=== PATIENT | female | born 1950 | race African-American/Black ===

== ENCOUNTER 2016-09-10 11:02 | Emergency (ER) | payer OTHER | END 2016-09-10 13:58 | disposition home or self-care (01) | DX: R04.2 Hemoptysis (principal); I10 Essential (primary) hypertension; K21.9 Gastro-esophageal reflux disease without esophagitis ==

== ENCOUNTER 2018-06-28 10:56 | Outpatient (CLI) | payer OTHER ==
[2018-06-28 14:23] LABS: BUN - BLOOD UREA NITROGEN 12 mg/dL (6-20); CALCIUM 9.3 mg/dL (8.5-10.3); CARBON DIOXIDE - CO2 29 mmol/L (21-32); CHLORIDE 100 mmol/L (101-111); CHOL/HDL RATIO 2.2 (<4.4); CHOLESTEROL 154 mg/dL; CREATININE 0.8 mg/dL (0.4-1.0); GFR - MDRD 87 (>89); GLUCOSE 98 mg/dL (70-100); HDL CHOLESTEROL 69 mg/dL; LDL CHOLESTEROL,CALCULATED 73 mg/dL; LDL/HDL RATIO 1.1 (<4.4); SODIUM 137 mmol/L (135-145); VLDL CHOLESTEROL 12 mg/dL
== END 2018-06-28 23:59 | disposition home or self-care (01) ==
LOC: LAB.N 10:56
PROVIDERS: ATTEND Internal Medicine Cardiovascular Disease
DX: I10 Essential (primary) hypertension (principal); E78.5 Hyperlipidemia, unspecified
CPT/HCPCS: 36415; 80048; 80053; 80061; 83721

== ENCOUNTER 2019-02-01 07:53 | Outpatient (CLI) | payer OTHER, MEDICARE ==
--- NOTE | 2019-02-01 11:08 | Mammography Report ---
Reason: [id number] Procedure Date: 02/01/2019 Accession Number: [id number] / [id number] Procedure: MGN - Screening Mammo Dig Bilat CPT Code: FULL RESULT: EXAM: Screening Mammo Dig Bilat DATE: 02/01/2019 8:37 AM CLINICAL HISTORY: Routine screening. No reported personal history of breast cancer. Benign excisional biopsy left breast in 1992. No reported family history of breast cancer. TECHNIQUE: (B) - Bilateral CC and MLO views were obtained. COMPARISON: 04/04/2012, 07/16/2010. PARENCHYMAL PATTERN: (A) - The breasts demonstrate scattered fibroglandular densities bilaterally. FINDINGS: Right breast: There is no 11 mm sharply circumscribed oval mass in the 6:00 subareolar right breast adjacent to the skin surface. No suspicious calcifications or areas of distortion. Left breast: There are no suspicious masses, calcifications, or areas of distortion. IMPRESSION: Right breast: 11 mm sharply circumscribed oval mass possibly cyst or focal duct dilatation 6:00 subareolar breast. Incomplete examination. BI-RADS category 0. Targeted ultrasound recommended. Left breast: Negative. BI-RADS Category 1. Recommend annual screening mammography. RECOMMENDATION: (ADDUS) - Targeted ultrasound recommended. BI-RADS CATEGORY: (0) - Incomplete Examination - need additional evaluation. STANDARD QUALIFYING STATEMENTS: 1. This examination was not reviewed with the aid of Computer-Aided Detection (CAD). 2. A negative or benign imaging report should not preclude biopsy if clinically suspicious findings are present. 3. Dense breasts may obscure an underlying neoplasm. 4. This examination was reviewed with the aid of 3D breast imaging (tomosynthesis).
== END 2019-02-01 07:54 | disposition home or self-care (01) ==
LOC: DI.N 07:53
PROVIDERS: ATTEND Nurse Practitioner Acute Care
DX: Z12.31 Encounter for screening mammogram for malignant neoplasm of breast (principal); R92.8 Other abnormal and inconclusive findings on diagnostic imaging of breast
CPT/HCPCS: 77067

== ENCOUNTER 2019-02-16 11:27 | Outpatient (CLI) | payer OTHER, MEDICARE ==
--- NOTE | 2019-02-16 13:39 | Ultrasound Report ---
Reason: ABNORMAL MAMMOGRAM Procedure Date: 02/16/2019 Accession Number: [id number] / [id number] Procedure: US - Breast Unilateral Limited CPT Code: FULL RESULT: EXAM: Breast Unilateral Limited DATE: 02/16/2019 12:04 PM CLINICAL HISTORY: ABNORMAL MAMMOGRAM COMPARISON: 02/01/2019 mammogram TECHNIQUE: Real-time scanning by the copy messenger with saved static images reviewed. FINDINGS: Corresponding to the mammographic abnormality in the 6:00 position right breast 1 cm from the nipple is an ovoid anechoic well-circumscribed avascular nodule measuring 8 x 6 x 8 mm with posterior acoustic enhancement and increased through transmission. The findings are consistent with a simple cyst. IMPRESSION: Benign findings right breast BI-RADS 2 RECOMMENDATION: Clinical follow-up of the palpable lump. If the lump enlarges return for repeat ultrasound. Otherwise follow-up bilateral mammography in 12 months. BI-RADS 2: Benign
== END 2019-02-16 11:28 | disposition home or self-care (01) ==
LOC: DI 11:27
PROVIDERS: ATTEND Nurse Practitioner Acute Care
DX: R92.8 Other abnormal and inconclusive findings on diagnostic imaging of breast (principal)
CPT/HCPCS: 76642

== ENCOUNTER 2019-11-06 15:48 | Emergency (ER) | payer MEDICARE, OTHER ==
--- NOTE | 2019-11-06 16:28 | ED Physician Documentation ---
History of Present Illness - Stated complaint Stated Complaint: groin leg px - Chief complaint Chief Complaint: Ext Problem - History obtained from History obtained from: Patient - History of Present Illness Timing: How many weeks ago (1) Pain level max: 6 Pain level now: 4 - Additonal information Additional information: 69-year-old female presents to the emergency department with right medial thigh pain. This been ongoing for the past week. Does not recall any injury. Worse with walking and better with rest. Has not taken any medication for this. Has had problems with this hip in the past and arthritis. No recent travel. No skin changes. No fever. Review of Systems Constitutional: denies: Fever, Chills GI: denies: Nausea, Vomiting, Diarrhea Skin: denies: Rash PD PAST MEDICAL HISTORY - Past Medical History Past Medical History: Yes Cardiovascular: Hypertension GI: GERD Psych: Depression - Past Surgical History Past Surgical History: Yes Ortho: Knee replacement /[employer]ER: Hysterectomy - Present Medications Home Medications: Ambulatory Orders Medication Instructions Recorded Confirmed Imipramine HCl 20 mg BID 11/04/15 09/10/16 Omeprazole 20 mg DAILY 11/04/15 09/10/16 Atorvastatin [Lipitor] 10 mg DAILY 09/10/16 09/10/16 Flecainide [Tambocar] 50 mg DAILY 09/10/16 09/10/16 Losartan [Cozaar] 50 mg PO DAILY 09/10/16 09/10/16 - Allergies Allergies/Adverse Reactions: Allergies Allergy/AdvReac Type Severity Reaction Status Date / Time No Known Drug Allergies Allergy Verified 11/06/19 15:52 - Social History Does the pt smoke?: No Smoking Status: Never smoker Does the pt drink ETOH?: No Does the pt have substance abuse?: No - POLST Patient has POLST: No PD ED PE NORMAL - Vitals Vital signs reviewed: Yes - General General: Alert and oriented X 3, No acute distress - Derm Derm: Warm and dry - Extremities Extremities: Other (Pain with active abduction of the right lower extremity. Mainly along the medial aspect of the thigh. Mild pain with isolated flexion and extension. There is no pain with passive range of motion. No skin changes. No crepitus. No ecchymosis. No palpable cords. No swelling. Neurovascular intact. No bony tenderness.) - Neuro Neuro: Alert and oriented X 3 Results - Vitals Vitals: Vital Signs - 24 hr 11/06/19 11/06/19 15:52 17:50 Temperature 36.5 C Heart Rate 56 L 60 Respiratory 16 16 Rate Blood Pressure 142/78 H 143/87 H O2 Saturation 97 Oxygen O2 Source Room air - Rads (name of study) Right lower extremity duplex ultrasound Radiology: Prelim report reviewed, EMP read contemporaneously, See rad report (No DVT) PD MEDICAL DECISION MAKING - ED course Complexity details: reviewed results, re-evaluated patient, considered differential, d/w patient ED course: Patient with right medial thigh pain. Appears to be muscular. Likely strain. No evidence of infection. No evidence of DVT. Winston bandage applied. She has meloxicam for home. Neurovascularly intact. Patient counseled regarding signs and symptoms for which I believe and urgent re-evaluation would be necessary. Patient with good understanding of and agreement to plan and is comfortable going home at this time This document was made in part using voice recognition software. While efforts are made to proofread this document, sound alike and grammatical errors may occur. Departure - Departure Disposition: 01 Home, Self Care Clinical Impression: Strain of right groin Condition: Good Instructions: ED Strain Groin Follow-Up: your,doctor in 1 week [Other] Comments: Continue your medications at home. Return if you worsen. Follow-up with your doctor for further care. Your ultrasound does not show any evidence of blood clot in your leg tonight. Gentle stretching may help as well. Discharge Date/Time: 11/06/19 17:58
--- NOTE | 2019-11-06 17:13 | Ultrasound Report ---
Reason: RLE pain, swelling Procedure Date: 11/06/2019 Accession Number: [id number] / [id number] Procedure: US - Duplex Ext Veins Right CPT Code: Final Report FULL RESULT: EXAM: RIGHT LOWER EXTREMITY VENOUS ULTRASOUND EXAM DATE: 11/06/2019 05:05 PM. CLINICAL HISTORY: RLE pain, swelling. COMPARISON: None. TECHNIQUE: Real-time sonographic vascular imaging was performed by the linemarker through the lower extremity utilizing both color-flow and Doppler spectral analysis. Multiple vaccine customer representative static images were saved for review. FINDINGS: Common Femoral Vein (CFV): Normal. CFV-GSV Junction: Normal. Profunda Femoral Vein (PFV): Normal. Femoral Vein (FV) Prox: Normal. Femoral Vein (FV) Mid: Normal. Femoral Vein (FV) Dist: Normal. Popliteal Vein: Normal. Posterior Tibial Veins: Normal. Peroneal Veins: Normal. Contralateral Side CFV: Normal. Other: None. IMPRESSION: No evidence for deep venous thrombosis. RADIA
[2019-11-06 17:58] VITALS: BP 143/87
== END 2019-11-06 17:58 | disposition home or self-care (01) ==
LOC: ED 15:48
DX: S39.011A Strain of muscle, fascia and tendon of abdomen, initial encounter (principal); X58.XXXA Exposure to other specified factors, initial encounter; M79.651 Pain in right thigh; I10 Essential (primary) hypertension
CPT/HCPCS: 99283; 99284

== ENCOUNTER 2020-01-23 04:29 | Outpatient (CLI) | payer MEDICARE, OTHER | END 2020-01-23 04:30 | disposition critical access hospital (66) | LOC: EMS 04:29 | PROVIDERS: ATTEND Surgery | DX: R07.9 Chest pain, unspecified (principal) | CPT/HCPCS: A0425; A0427 ==

== ENCOUNTER 2020-06-25 08:17 | Outpatient (CLI) | payer OTHER, MEDICARE ==
--- NOTE | 2020-06-26 13:00 | Mammography Report ---
BILATERAL DIGITAL SCREENING MAMMOGRAM 3D/2D: 06/25/2020 CLINICAL: Routine screening. Comparison is made to exams dated: 02/16/2019 ultrasound, 02/01/2019 mammogram, and 04/04/2012 mammogra m - [facility]. There are scattered fibroglandular elements in both breasts. No significant masses, calcifications, or other findings are seen in either breast. There has been no significant interval change. IMPRESSION: NEGATIVE There is no mammographic evidence of malignancy. A 1 year screening mammogram is recommended. This exam was interpreted at Station ID: [id number]. NOTE: For mammograms, a report in lay terms will be sent to the patient. Approximately 15% of breast malignancies will not be visualized mammographically. In the management of a palpable breast mass, a negative mammogram must not discourage biopsy of a clinically suspicious lesion. Electronically Signed By: Antonio Hart M.D. [email or web address]:06/25/2020 09:57:01 ACR BI-RADS Category 1: Negative 3341F PARENCHYMAL PATTERN: (A) - The breast(s) demonstrate(s) scattered fibroglandular densities. BI-RADS CATEGORY: (1) - 1 RECOMMENDATION: (ANNUAL) - Recommend routine annual screening mammography. [id number] 1 year screening LATERALITY: (B)
== END 2020-06-25 08:18 | disposition home or self-care (01) ==
LOC: DI.N 08:17
DX: Z12.31 Encounter for screening mammogram for malignant neoplasm of breast (principal)
CPT/HCPCS: 77067

== ENCOUNTER 2020-08-19 11:24 | Outpatient (CLI) | payer OTHER, MEDICARE ==
[2020-08-19 18:42] LABS: BUN - BLOOD UREA NITROGEN 13 mg/dL (6-20); CALCIUM 9.9 mg/dL (8.5-10.3); CARBON DIOXIDE - CO2 28 mmol/L (21-32); CHLORIDE 103 mmol/L (101-111); CHOL/HDL RATIO 3.3 (<4.4); CHOLESTEROL 237 mg/dL; CREATININE 0.8 mg/dL (0.4-1.0); GFR - MDRD 86 (>89); GLUCOSE 99 mg/dL (70-100); HDL CHOLESTEROL 72 mg/dL; LDL CHOLESTEROL,CALCULATED 147 mg/dL; POTASSIUM 4.7 mmol/L (3.5-5.0); SODIUM 144 mmol/L (135-145); TRIGLYCERIDES 89 mg/dL; VLDL CHOLESTEROL 18 mg/dL
== END 2020-08-19 11:25 | disposition home or self-care (01) ==
LOC: LAB.N 11:24
PROVIDERS: ATTEND Internal Medicine Cardiovascular Disease
DX: E78.5 Hyperlipidemia, unspecified (principal); I10 Essential (primary) hypertension
CPT/HCPCS: 36415; 80048; 80061; 83721

== ENCOUNTER 2021-07-02 15:09 | Outpatient (CLI) | payer MEDICARE, OTHER ==
--- NOTE | 2021-07-03 13:45 | Mammography Report ---
BILATERAL DIGITAL SCREENING MAMMOGRAM 3D/2D: 07/02/2021 CLINICAL: Routine screening. Comparison is made to exams dated: 06/25/2020 mammogram, 02/16/2019 ultrasound, 02/01/2019 mammogram, mammogram - [facility], 07/16/2010 mammogram, and 07/16/2009 mammogram - [facility]. There are scattered fibroglandular elements in both breasts. No significant masses, calcifications, or other findings are seen in either breast. There has been no significant interval change. IMPRESSION: NEGATIVE There is no mammographic evidence of malignancy. A 1 year screening mammogram is recommended. This exam was interpreted at Station ID: [id number]. NOTE: For mammograms, a report in lay terms will be sent to the patient. Approximately 15% of breast malignancies will not be visualized mammographically. In the management of a palpable breast mass, a negative mammogram must not discourage biopsy of a clinically suspicious lesion. Electronically Signed By: Fritz Mitchell [email or web address]/[email or web address]:07/02/2021 15:53:08 ACR BI-RADS Category 1: Negative 3341F PARENCHYMAL PATTERN: (A) - The breast(s) demonstrate(s) scattered fibroglandular densities. BI-RADS CATEGORY: (1) - 1 RECOMMENDATION: (ANNUAL) - Recommend routine annual screening mammography. [id number] 1 year screening LATERALITY: (B)
== END 2021-07-02 15:10 | disposition home or self-care (01) ==
LOC: DI.N 15:09
DX: Z12.31 Encounter for screening mammogram for malignant neoplasm of breast (principal)

== ENCOUNTER 2021-08-07 07:29 | Day surgery (SDC) | payer OTHER ==
[~2021-08-07 07:29] MED LIST: CYCLOPENTOLATE 1% OPHTH DROPS 2 ML ONE; KETOROLAC 0.45% OPHTH DROPS ONE; PHENYLEPHRINE 2.5% OPHTH 2 ML DROPS ONE; PROPARACAINE 0.5% OPHTH DROPS 15 ML ONE
[2021-08-07] MEDS ORDERED: LACTATED RINGERS 1,000 ML IV ONE (07:55)
--- NOTE | 2021-08-07 09:01 | ANESTHESIA ---
Pre-Anesthesia VS, & Labs - Diagnosis L senile combined cataract - Procedure L extraction cataract w/IOL Vital Signs: Temp Pulse Resp BP Pulse Ox 36.5 C 87 14 131/63 H 98 08/07/21 07:33 08/07/21 07:33 08/07/21 07:33 08/07/21 07:33 08/07/21 07:33 Height: 5 ft 9 in Weight (kg): 94.8 kg Body Mass Index: 30.8 BMI Classification: Obese - NPO >8 hours - Is Patient ?: No - Lab Results Lab results reviewed: Yes Home Medications and Allergies Home Medications: Ambulatory Orders DULoxetine [Cymbalta] 30 mg PO DAILY 08/06/21 Oxybutynin [Ditropan] 5 mg PO BID 08/06/21 amLODIPine [Norvasc] 5 mg PO DAILY 08/06/21 Omeprazole 20 mg PO DAILY 11/04/15 Atorvastatin [Lipitor] 10 mg PO DAILY 09/10/16 Losartan [Cozaar] 50 mg PO DAILY 09/10/16 DULoxetine [Cymbalta] 30 mg PO DAILY 08/06/21 Oxybutynin [Ditropan] 5 mg PO BID 08/06/21 amLODIPine [Norvasc] 5 mg PO DAILY 08/06/21 Allergies/Adverse Reactions: Allergies Allergy/AdvReac Type Severity Reaction Status Date / Time No Known Drug Allergies Allergy Verified 01/23/20 04:54 Anes History & Medical History - Anesthetic History Anesthesia Complications: reports: No previous complications Family history of Anesthesia Complications: Denies Family history of Malignant Hyperthermia: Denies - Medical History Cardiovascular: reports: Hypertension, Arrhythmia (SR w PACs, currently wearing 1 week Holter monitor) Pulmonary: reports: None Gastrointestinal: reports: GERD Smoking Status: Never smoker - Surgical History Gynecologic: reports: Hysterectomy Orthopedic: reports: Knee replacement Exam General: Alert, Oriented x3, Cooperative Dental: WNL Mouth Opening: Greater than 4 Fingerbreadths Neck Mobility: Normal Mallampati classification: II Thyromental Distance: 4-6 cm Respiratory: Lungs clear, Normal breath sounds, No respiratory distress Cardiovascular: Regular rate (SR w PACs per tele and palpation) Neurological: Normal speech Mental/Cognitive Status: Alert/Oriented X3, Normal for patient Cognitive Status: Within normal limits Plan Anesthesia Type: MAC Consent for Procedure(s) Verified and Reviewed: Yes Code Status: Attempt Resuscitation ASA classification: 2-Mild systemic disease Is this case an emergency?: No
[2021-08-07] MEDS ORDERED: MIDAZOLAM 2 MG/2 ML VIAL ONE (09:06)
[2021-08-07] MEDS ORDERED: BSS/LIDOCAINE/EPINEPHRINE 1 ML SYRINGE IO ONE (09:27)
[2021-08-07] MEDS ORDERED: TRIAMCIN/MOXIFLOX OPHTHALMIC 0.6 ML VIAL IO ONE ×2 (09:27→13:39)
[2021-08-07] MEDS ORDERED: BRIMONIDINE 0.2% OPHTH DROPS 5 ML OPTH ONE (09:27)
[2021-08-07] MEDS ORDERED: PROPARACAINE 0.5% OPHTH DROPS 15 ML EACHEYE ONE (09:27)
[2021-08-07] MEDS ORDERED: TIMOLOL 0.5% OPHTH DROPS OPTH ONE (09:27)
[2021-08-07] MEDS ORDERED: EPINEPHrine 1 MG/ML AMP IR ONE (09:27)
[2021-08-07] MEDS ORDERED: VANCOMYCIN OPHTHALMI 8MG/0.8ML 8 MG/0.8 ML SYRINGE IO ONE (09:28)
[2021-08-07] MEDS ORDERED: LACTATED RINGERS 700 ML IV ONE (09:41)
[2021-08-07 09:55] VITALS: BP 144/70
--- NOTE | 2021-08-07 11:19 | OPERATIVE REPORT ---
Operative Report - Other Other Information/Narrative: Date of Surgery: 08/07/21 Preop Dx: Visually significant cataract left eye. This was the first cataract surgery. Postop Dx: Same Procedure: Phacoemulsification with posterior chamber intraocular lens implant left eye Surgeon: Dr. Deandre Yuen Anesthesia: Monitored anesthesia care Complications: None Operative Indications: This is a 71-year-old F with progressive vision loss in the left eye due to 2+ nuclear sclerotic, 3+ cortical, and 2+ posterior subcapsular cataract. Best corrected visual acuity was 20/30 with glare to 20/60 vision in the left eye. Indications for surgery were: - Overall decrease in vision - Difficulty seeing words on a computer screen - Difficulty reading - Difficulty seeing words, closed captions, or game scores on TV - Difficulty seeing street signs - Difficulty driving in low light or at night - Difficulty driving at night because of headlights from other vehicles - Difficulty with glare or bright lights in any situation - Difficulty tracking a golf ball - Decreased acuity with firearms The patient was consented at length concerning the risks and benefits of cataract surgery after which the patient expressed a desire to proceed with surgery. Operative Procedure: The patient was taken into OR#3 and placed under monitored anesthesia care. A surgical time-out was conducted confirming correct patient, correct procedure, and correct surgical site. The patient was given topical anesthesia and then prepped and draped in the usual sterile fashion. The eye was entered at the 6 and 3 oclock positions. Intracameral Shugarcaine was injected into the anterior chamber followed by a dispersive viscoelastic. A continuous-tear curvilinear capsulorhexis was performed. The nucleus was hydrodissected and phacoemulsified. The cortex was evacuated using automated infusion and aspiration. A cohesive viscoelastic was injected into the capsular bag and a 19.5 diopter intraocular lens was inserted into the bag. Infusion and aspiration were used to evacuate the viscoelastic materials from the eye. The wounds were hydrated and the eye inflated to physiologic pressure using balanced salt solution. Approximately 0.25ml of a mixture of triamcinolone and moxifloxacin was injected trans-sclerally into the vitreous in the inferotemporal quadrant using a 30 gauge cannula. An additional 0.55ml of a mixture of triamcinolone, moxifloxacin, and vancomycin was injected subconjunct ivally in the superior quadrant for infection and inflammation prophylaxis. Wound integrity was checked with Weck-Tesha sponges. The patient was taken from the operating room in good condition and given post-op instructions.
--- NOTE | 2021-08-07 11:39 | ANESTHESIA POST OP EVALUATION ---
Anesthesia Post Eval - Post Anesthesia Eval Vitals: Last Vital Signs Temp 36.4 C L 08/07/21 09:41 Pulse 87 08/07/21 09:50 Resp 16 08/07/21 09:50 BP 144/70 H 08/07/21 09:50 Pulse Ox 100 08/07/21 09:50 CV Function Including HR & BP: Stable Pain Control: Satisfactory Nausea & Vomiting: Negative Mental Status: Baseline Respiratory Status: Airway Patent Hydration Status: Satisfactory Anesthesia Complications: None
[2021-08-07] MEDS ORDERED: BSS/LIDOCAINE/EPINEPHRINE 1 ML VIAL ONE (13:40)
[2021-08-07] MEDS ORDERED: BRIMONIDINE 0.2% OPHTH DROPS 5 ML ONE (13:40)
[2021-08-07] MEDS ORDERED: TIMOLOL 0.5% OPHTH DROPS ONE (13:40)
== END 2021-08-07 07:30 | disposition home or self-care (01) ==
LOC: SDS 07:29
PROVIDERS: ATTEND Ophthalmology
DX: H25.812 Combined forms of age-related cataract, left eye (principal); E66.9 Obesity, unspecified; Z68.30 Body mass index [BMI] 30.0-30.9, adult; I49.9 Cardiac arrhythmia, unspecified
CPT/HCPCS: 66984; A9270; J3490; J7120

== ENCOUNTER 2021-11-27 23:08 | Emergency (ER) | payer OTHER ==
--- NOTE | 2021-11-27 23:34 | ED Physician Documentation ---
PD HPI CHEST PAIN - Stated complaint Stated Complaint: CP,BURPING - Chief complaint Chief Complaint: Cardiac - History obtained from History obtained from: Patient - History of Present Illness Timing - onset: How many days ago (few) Timing - onset during: Rest, Light activity. No: Exertion Timing - duration: Days (few) Timing - details: Still present, Intermittant Quality: Aching Location: Left chest Radiation: Back (left scapular) Improved by: No: Rest, Antacids Worsened by: No: Exertion, Inspiration, Eating Associated symptoms: Nausea, Other (frequent burping). No: Shortness of air, Diaphoresis Similar symptoms before: Has not had sx before Recently seen: Not recently seen Review of Systems Constitutional: denies: Fever, Chills Nose: denies: Rhinorrhea / runny nose, Congestion Throat: denies: Sore throat Cardiac: denies: Pedal edema, Calf pain Respiratory: denies: Dyspnea, Cough, Wheezing GI: denies: Abdominal Pain, Nausea, Vomiting, Diarrhea Skin: denies: Rash, Lesions Musculoskeletal: denies: Neck pain, Back pain Neurologic: denies: Generalized weakness, Near syncope, Altered mental status, Headache Immunocompromised: denies: Immunocompromised PD PAST MEDICAL HISTORY - Past Medical History Cardiovascular: Hypertension, Arrhythmia Respiratory: None Endocrine/Autoimmune: None GI: GERD : None HEENT: None Psych: Depression Musculoskeletal: None Derm: None - Past Surgical History Past Surgical History: Yes 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 HEENT: Cataracts - Present Medications Home Medications: Ambulatory Orders Medication Instructions Recorded Confirmed Omeprazole 20 mg PO DAILY 11/04/15 09/17/21 Atorvastatin [Lipitor] 10 mg PO DAILY 09/10/16 09/17/21 Losartan [Cozaar] 50 mg PO DAILY 09/10/16 09/17/21 DULoxetine [Cymbalta] 30 mg PO DAILY 08/06/21 09/17/21 Oxybutynin [Ditropan] 5 mg PO BID 08/06/21 09/17/21 amLODIPine [Norvasc] 5 mg PO DAILY 08/06/21 09/17/21 Metoprolol Tartrate [Lopressor] 25 mg PO BID 09/18/21 09/18/21 Lidocaine Viscous 2% [Xylocaine 5 ml PO Q4H PRN #100 ml 06/17/22 Viscous 2%] Ondansetron Odt [Zofran] 4 mg TL Q6H PRN #10 tablet 11/28/21 - Allergies Allergies/Adverse Reactions: Allergies Allergy/AdvReac Type Severity Reaction Status Date / Time No Known Drug Allergies Allergy Verified 11/27/21 23:15 - Living Situation Living Situation: reports: With spouse/s.o. Living Arrangement: reports: At home - Social History Does the pt smoke?: No Smoking Status: Never smoker Does the pt drink ETOH?: No Does the pt have substance abuse?: No - Immunizations Immunizations are current?: No - POLST Patient has POLST: No PD ED PE NORMAL - Vitals Vital signs reviewed: Yes - General General: Alert and oriented X 3, No acute distress, Well developed/nourished - HEENT HEENT: Pharynx benign - Neck Neck: Supple, no meningeal sign, No adenopathy - Cardiac Cardiac: RRR, No murmur - Respiratory Respiratory: No respiratory distress, Clear bilaterally, Other (no chestwall tenderness) - Abdomen Abdomen: Normal bowel sounds, Soft, Non tender - Derm Derm: Normal color, Warm and dry - Extremities Extremities: Normal ROM s pain, No edema, No calf tenderness / cord, Other (left heel with tenderness. She says chronic ulcer there. Left sock on at patient request.) - Neuro Neuro: Alert and oriented X 3, No motor deficit, Normal speech Results - Vitals Vitals: Vital Signs - 24 hr 11/27/21 11/27/21 11/27/21 23:10 23:24 23:56 Temperature 36.1 C L Heart Rate 97 98 85 Respiratory 18 18 15 Rate Blood Pressure 133/115 H 131/82 H 131/82 H O2 Saturation 94 98 98 11/28/21 11/28/21 11/28/21 00:29 00:32 01:08 Temperature Heart Rate 76 80 76 Respiratory 20 14 22 Rate Blood Pressure 131/82 H 131/82 H 91/65 O2 Saturation 97 98 97 11/28/21 11/28/21 01:43 02:01 Temperature Heart Rate 85 74 Respiratory 22 20 Rate Blood Pressure 117/77 132/64 H O2 Saturation 98 98 Oxygen O2 Source Room air - EKG (time done) 23:16 Rate: Rate (enter#) (93) Rhythm: NSR [place]: Normal Intervals: Normal [place] QRS: Normal Ischemia: Normal ST segments. No: ST elevation c/w ischemia, ST depression Compare to prior EKG: Old EKG unavailable - Labs Labs: Laboratory Tests 11/27/21 11/27/21 11/27/21 23:34 23:34 23:34 WBC 6.4 RBC 4.80 Hgb 13.6 Hct 41.5 MCV 86.5 MCH 28.3 MCHC 32.8 RDW 15.5 H Plt Count 294 MPV 10.4 Neut # (Auto) 2.9 Lymph # (Auto) 2.9 [place] # (Auto) 0.4 Eos # (Auto) 0.2 Baso # (Auto) 0.0 Absolute Nucleated RBC 0.00 Nucleated RBC % 0.0 Sodium 139 Potassium 3.7 Chloride 104 Carbon Dioxide 26 Anion Gap 9.0 BUN 23 H Creatinine 0.7 Estimated GFR (MDRD) 100 Glucose 110 H Calcium 9.4 Total Bilirubin 0.5 AST 26 ALT 27 Alkaline Phosphatase 91 Troponin I High Sens 3.5 B-Natriuretic Peptide Total Protein 7.7 Albumin 3.8 Globulin 3.9 Albumin/Globulin Ratio 1.0 Lipase 25 11/27/21 23:34 WBC RBC Hgb Hct MCV MCH MCHC RDW Plt Count MPV Neut # (Auto) Lymph # (Auto) [place] # (Auto) Eos # (Auto) Baso # (Auto) Absolute Nucleated RBC Nucleated RBC % Sodium Potassium Chloride Carbon Dioxide Anion Gap BUN Creatinine Estimated GFR (MDRD) Glucose Calcium Total Bilirubin AST ALT Alkaline Phosphatase Troponin I High Sens B-Natriuretic Peptide 10 Total Protein Albumin Globulin Albumin/Globulin Ratio Lipase - Rads (name of study) chest xray Radiology: Prelim report reviewed (normal), See rad report PD MEDICAL DECISION MAKING - ED course Complexity details: re-evaluated patient (she states good improvement with GI cocktail. This, along with normal other tests, suggests esophagitis/gastritis. ), considered differential (can assess for CO/lung process. Not exertional and does not sound like classic angina. Can chest labs too. ) Departure - Departure Disposition: 01 Home, Self Care Clinical Impression: Esophagitis Chest pain Qualifiers: Chest pain type: precordial pain Qualified Code(s): R07.2 - Precordial pain Condition: Stable Record reviewed to determine appropriate education?: Yes Instructions: ED GERD, ED Gastritis Follow-Up: Laurence Goldberg MD [Primary Care Provider] - Prescriptions: Lidocaine Viscous 2% [Xylocaine Viscous 2%] 5 ml PO Q4H PRN #100 ml PRN Reason: Pain Ondansetron Odt [Zofran] 4 mg TL Q6H PRN #10 tablet PRN Reason: Nausea / Vomiting Comments: Your EKG, chest x-ray, blood tests are normal. No signs of heart attack, heart failure, lung process, pancreatitis or gallbladder or liver problems. I presume you are having some irritation of the stomach and esophagus. I would have you increase your omeprazole 20 mg from once daily to twice daily for the next couple of weeks. To that add some antacids such as Maalox or Mylanta 3-4 times daily. You can combine it with the lidocaine 5mL per dose to help with the discomfort. This is what we gave you here to help with the symptoms. To that add Tylenol every 4-6 hours if needed for pains. Ondansetron every 4-6 hours if needed for nausea. Continue your other usual medicines. No aspirin or ibuprofen. Follow-up with your primary care if not improving well over the next several days to week. If you have persistent symptoms that are hard to fully clear, your primary care may consider doing a stool test to look for an infection called H. pylori and/or other testing. I sent your prescription to [facility] in [place]. Discharge Date/Time: 11/28/21 02:23
[2021-11-27 23:54] LABS: ALBUMIN 3.8 g/dL (3.2-5.5); BILIRUBIN,TOTAL 0.5 mg/dL (0.2-1.0); CALCIUM 9.4 mg/dL (8.5-10.3); CREATININE 0.7 mg/dL (0.4-1.0); POTASSIUM 3.7 mmol/L (3.5-5.0); TOTAL PROTEIN 7.7 g/dL (6.7-8.2)
--- NOTE | 2021-11-27 23:54 | XRAY Report ---
PROCEDURE: Chest 1 View X-Ray INDICATIONS: Chest pain TECHNIQUE: One view of the chest was acquired. COMPARISON: 01/23/2020. FINDINGS: Surgical changes and devices: None. Lungs and pleura: No pleural effusions or pneumothorax. Lungs are clear. Mediastinum: Mediastinal contours appear normal. Heart size is normal. Bones and chest wall: No suspicious bony lesions. Overlying soft tissues appear unremarkable. IMPRESSION: 1. No acute cardiopulmonary disease. Reviewed by: Adair Garza MD on 11/27/2021 11:57 PM PDT Approved by: Adair Garza MD on 11/27/2021 11:57 PM PDT Station ID: [id number]
[2021-11-28] MEDS ORDERED: LIDOCAINE VISCOUS 2% 15 ML UDC MM STA (00:09)
[2021-11-28] MEDS ORDERED: MAG HYDROX/AL HYDROX/SIMETH 30 ML UDC PO STA (00:09)
[2021-11-28] MEDS ORDERED: FAMOTIDINE 20 MG/2 ML VIAL IVP STA (00:09)
[2021-11-28 00:55] LABS: BASOPHILS % (AUTO) 0.3 %; EOSINOPHILS # (AUTO) 0.2 10^3/uL (0.0-0.7); EOSINOPHILS % (AUTO) 2.3 %; HCT - HEMATOCRIT 41.5 % (37.0-47.0); HGB - HEMOGLOBIN 13.6 g/dL (12.0-16.0); LYMPHOCYTES # (AUTO) 2.9 10^3/uL (1.5-3.5); LYMPHOCYTES % (AUTO) 45.4 %; MEAN CORPUSCULAR HEMOGLOBIN 28.3 pg (27.0-31.0); MEAN CORPUSCULAR HGB CONC 32.8 g/dL (32.0-36.0); MEAN CORPUSCULAR VOLUME 86.5 fL (81.0-99.0); MEAN PLATELET VOLUME 10.4 fL (7.9-10.8); MONOCYTES # (AUTO) 0.4 10^3/uL (0.0-1.0); MONOCYTES % (AUTO) 6.6 %; NEUTROPHILS # (AUTO) 2.9 10^3/uL (1.5-6.6); NEUTROPHILS % (AUTO) 45.1 %; PLT - PLATELET COUNT 294 10^3/uL (130-450); RED CELL DISTRIBUTION WIDTH 15.5 % (12.0-15.0); WHITE BLOOD COUNT 6.4 x10^3/uL (4.8-10.8)
[2021-11-28 02:02] VITALS: BP 132/64
== END 2021-11-28 02:23 | disposition home or self-care (01) ==
LOC: ED 23:08
DX: K20.90 Esophagitis, unspecified without bleeding (principal); R07.9 Chest pain, unspecified; I10 Essential (primary) hypertension
CPT/HCPCS: 36415; 71045; 80053; 83690; 83880; 84484; 85025; 93005; 96374; 99284; A9270